=== PATIENT | female | born 1945 | race Hispanic/Latino ===

== ENCOUNTER 2020-02-05 21:06 | Emergency (ER) | payer MEDICARE ==
[~2020-02-05 21:06] MED LIST: CALCIUM CHLORIDE 1,000 MG/10 ML SYRINGE IV ONE; EPINEPHrine 1 MG/10 ML SYRINGE ONE
--- NOTE | 2020-02-05 21:15 | Emergency Department Report ---
HPI - General Time Seen by Provider: 02/05/20 21:12 - HPI HPI: This is a 74-year-old female who presents to the emergency department via EMS from her [place] [facility] in cardiac arrest. EMS call was at 8:31 PM the call for shortness of breath. The patient apparently was found down and unresponsive about 10 minutes prior to EMS arrival. Upon EMS arrival ACLS protocol was initiated. A Andrew airway was placed, and intraosseous line was placed to the right lower extremity, the patient began receiving chest compressions, and overall had 2 rounds of epinephrine and 1 of sodium bicarbonate. The patient was initially in PEA and then went into asystole, where she remained until arrival to the emergency department. Previous records show that she has a history of diabetes, peripheral vascular disease, hypertension, dementia, seizure disorder. ED Past Medical Hx - Past Medical History Hx Hypertension: Yes Hx Diabetes: Yes Hx Arthritis: Yes Hx Seizures: Yes Additional medical history: ISRA - Surgical History Additional Surgical History: PLATE IN LEFT LEG - Social History Smoking Status: Never Smoker - Medications Home Medications: Home Medications Medication Instructions Recorded Confirmed Last Taken Type Famotidine [Pepcid] 20 mg PO BID tablet 10/23/15 08/29/17 Unknown Rx Aspirin [Aspirin BABY CHEW TAB] 81 mg PO QDAY #30 tab.chew 09/03/17 Unknown Rx levETIRAcetam [Keppra TAB] 750 mg PO BID #60 tablet 09/03/17 Unknown Rx levoFLOXacin [Levaquin TAB] 500 mg PO QDAY #7 tablet 09/03/17 Unknown Rx oxyCODONE /ACETAMINOPHEN [Percocet 1 tab PO Q6H PRN #14 tablet 09/03/17 Unknown Rx 5/325 mg] ED Review of Systems ROS: Stated complaint: CARDIAC ARREST Other details as noted in HPI Comment: Unobtainable due to pts medical conditions Physical Exam - Physical Exam Physical Exam: GENERAL: Patient is ill-appearing and unresponsive. HENT: Normocephalic. Atraumatic. EYES: Pupils are fixed and dilated. NECK: Supple. Trachea appears midline. CHEST/LUNGS: There are no spontaneous respirations. HEART/CARDIOVASCULAR: There are no spontaneous heart sounds. ABDOMEN: Abdomen is soft. There is no abdominal distention. SKIN: Skin is cool but dry. NEURO: Unresponsive. Does not withdraw to painful stimuli. Does not follow any commands. MUSCULOSKELETAL: There is no obvious deformity. There is no evidence of acute injury. No palpable femoral or radial pulses. ED Medical Decision Making - Medical Decision Making This patient presents from her [place] [facility] in cardiac arrest. The patient was already down and unresponsive for at least 30 minutes prior to arrival.. Upon arrival to bed #1 the patient was still pulseless and in asystole. We continued chest compressions, bag valve ventilation and ACLS protocol. Patient received 2 doses of epinephrine, 1 of sodium bicarbonate, 1 of calcium. With each pulse and rhythm check, the patient was pulseless and in asystole. Pupils are fixed and dilated. No spontaneous heart or breath sounds. No palpable pulses. Time of called at 9:11 PM. Patient's son arrived to the hospital and was notified of her expiration. Critical Care Time: Yes Critical care time in (mins) excluding proc time.: 20 Critical care attestation.: If time is entered above; I have spent that time in minutes in the direct care of this critically ill patient, excluding procedure time. Critical care time was spent on this patient doing her initial evaluation, supervision of ACLS protocol, discussion with the patient's son. Critical Care Time: 20 minutes ED Disposition Clinical Impression: Cardiac arrest Acute respiratory failure Qualifiers: Respiratory failure complication: unspecified whether with hypoxia or hypercapnia Qualified Code(s): J96.00 - Acute respiratory failure, unspecified whether with hypoxia or hypercapnia Disposition: DC-20 Is pt being admited?: No Time of Disposition: 23:25
== END 2020-02-06 02:30 ==
LOC: ED 21:06
DX: J96.00 Acute respiratory failure, unspecified whether with hypoxia or hypercapnia (principal); I46.9 Cardiac arrest, cause unspecified; I10 Essential (primary) hypertension; E11.9 Type 2 diabetes mellitus without complications; M13.88 Other specified arthritis, other site; Z79.899 Other long term (current) drug therapy
CPT/HCPCS: 92950; 99285; J0171